=== PATIENT | male | born 1940 | race Caucasian/White ===

== ENCOUNTER 2022-02-28 17:24 | Inpatient (IN) ==
[2022-02-28] MEDS ORDERED: NS 0.9% 1000 ml BAG 1,000 ML IV ONE (17:27)
[2022-02-28 18:10] LABS: ABS Basophils 0.1 10^3/ul (0-0.2); ABS Eosinophils 0.3 10^3/ul (0-0.6); ABS Lymphocytes 1.6 10^3/ul (1.0-4.8); ABS Monocytes 0.5 10^3/ul (0-0.8); ABS Neutrophils 5.2 10^3/ul (1.5-7.7); Eosinophil % 3.3 %; Hematocrit 46 % (42-52); Hemoglobin 15.3 g/dL (14.0-18.0); Lymphocyte % 21.4 %; Mean Corpuscular HGB Conc 33 g/dL (31-36); Mean Corpuscular Hemoglobin 28 pg (27-31); Mean Corpuscular Volume 85 fL (80-94); Mean Platelet Volume 6.8 fL (7.4-10.4); Nucleated Red Blood Cells % 0.2; Platelet Count 274 10^3/uL (150-450); Red Blood Count 5.45 10^6 /uL (4.18-5.48); Red Cell Distribution Width 15 % (10-15); White Blood Count 7.6 10^3/uL (3.5-10.8)
[2022-02-28 18:20] LABS: Activated Partial Thrombo Time 30.6 seconds (26.0-38.0); INR 0.96 (0.86-1.15)
[2022-02-28 19:10] LABS: Albumin 3.3 g/dL (3.2-5.2); Albumin/Globulin Ratio 1.2 (1-3); Calcium 8.9 mg/dL (8.6-10.3); Globulin 2.7 g/dL (2-4); HDL Cholesterol 42.6 mg/dL; Potassium 5.1 mmol/L (3.5-5.0); Total Bilirubin 0.4 mg/dL (0.2-1.0); eGFR CKD-EPI 21.2 (>60)
[2022-02-28 20:02] LABS: High Sensitivity Troponin 1 Hr 23 pg/mL (<20)
[2022-02-28] MEDS ORDERED: Labetalol IV 5 MG/ML 20 ml VIAL IV PUSH ONE (20:25)
[2022-02-28 20:32] LABS: Magnesium 2.2 mg/dL (1.9-2.7)
[2022-02-28] MEDS ORDERED: Albuterol 2.5mg/3 ml (0.083%) NEB.SOLN INH PRN (22:01)
[2022-02-28] MEDS ORDERED: Dextrose 50% Syringe 50 ml 25 GM/50 ML SYRINGE IV PUSH PRN (22:06)
[2022-02-28 22:24] LABS: TSH Ultra Thyroid Stim Horm 2.48 mcIU/mL (0.34-5.60)
[2022-02-28] MEDS ORDERED: Insulin GLARGINE 100 un/ml 10 ml VIAL SUBCUT SCH (23:00)
[2022-02-28] MEDS ORDERED: Budesonide/Formote 160/4.5(NF) MDI INH SCH (23:00)
[2022-03-01] MEDS: Insulin GLARGINE 100 un/ml 10 ml VIAL SUBCUT SCH ×2 (00:55→20:55)
[2022-03-01 06:04] LABS: ABS Basophils 0.1 10^3/ul (0-0.2); ABS Eosinophils 0.4 10^3/ul (0-0.6); ABS Lymphocytes 2.2 10^3/ul (1.0-4.8); ABS Monocytes 0.6 10^3/ul (0-0.8); ABS Neutrophils 5.3 10^3/ul (1.5-7.7); Eosinophil % 4.5 %; Hematocrit 43 % (42-52); Hemoglobin 14.2 g/dL (14.0-18.0); Lymphocyte % 25.6 %; Mean Corpuscular HGB Conc 33 g/dL (31-36); Mean Corpuscular Hemoglobin 28 pg (27-31); Mean Corpuscular Volume 86 fL (80-94); Mean Platelet Volume 6.3 fL (7.4-10.4); Platelet Count 289 10^3/uL (150-450); Red Blood Count 5.04 10^6 /uL (4.18-5.48); Red Cell Distribution Width 15 % (10-15); White Blood Count 8.5 10^3/uL (3.5-10.8)
[2022-03-01] MEDS: Albuterol HFA INHALER 8 gm MDI INH PRN (06:22)
[2022-03-01 06:47] LABS: Calcium 8.6 mg/dL (8.6-10.3); eGFR CKD-EPI 20.5 (>60)
[2022-03-01 06:49] LABS: Potassium 5.2 mmol/L (3.5-5.0)
[2022-03-01] MEDS ORDERED: Mometasone/Formoter 100/5 MDI INH SCH (07:00)
[2022-03-01] MEDS: Aspirin EC 81 mg TAB.EC (enteric coated) PO SCH (11:24)
[2022-03-01] MEDS: Mometasone/Formoter 100/5 MDI INH SCH (21:06)
[2022-03-02] MEDS: Albuterol HFA INHALER 8 gm MDI INH PRN (05:45)
[2022-03-02 06:02] LABS: ABS Basophils 0.1 10^3/ul (0-0.2); ABS Eosinophils 0.4 10^3/ul (0-0.6); ABS Lymphocytes 2.5 10^3/ul (1.0-4.8); ABS Monocytes 0.6 10^3/ul (0-0.8); ABS Neutrophils 5.3 10^3/ul (1.5-7.7); Eosinophil % 4.2 %; Hematocrit 44 % (42-52); Hemoglobin 14.3 g/dL (14.0-18.0); Lymphocyte % 28.6 %; Mean Corpuscular HGB Conc 33 g/dL (31-36); Mean Corpuscular Hemoglobin 28 pg (27-31); Mean Corpuscular Volume 86 fL (80-94); Mean Platelet Volume 6.7 fL (7.4-10.4); Platelet Count 269 10^3/uL (150-450); Red Blood Count 5.06 10^6 /uL (4.18-5.48); Red Cell Distribution Width 16 % (10-15); White Blood Count 8.9 10^3/uL (3.5-10.8)
[2022-03-02 06:20] LABS: Calcium 8.5 mg/dL (8.6-10.3); Potassium 4.7 mmol/L (3.5-5.0)
[2022-03-02] MEDS ORDERED: Perflutren Lipid Microsphere 3 ML VIAL ONE (07:01)
[2022-03-02] MEDS: Mometasone/Formoter 100/5 MDI INH SCH ×2 (07:10→19:24)
[2022-03-02] MEDS: Aspirin EC 81 mg TAB.EC (enteric coated) PO SCH (08:20)
[2022-03-02] MEDS: Enoxaparin 30 MG/0.3 ML SYR SUBCUT SCH (10:02)
[2022-03-02] MEDS: Insulin GLARGINE 100 un/ml 10 ml VIAL SUBCUT SCH (20:46)
[2022-03-03] MEDS: Mometasone/Formoter 100/5 MDI INH SCH (07:01)
[2022-03-03 07:04] LABS: ABS Basophils 0.1 10^3/ul (0-0.2); ABS Eosinophils 0.4 10^3/ul (0-0.6); ABS Lymphocytes 2.4 10^3/ul (1.0-4.8); ABS Monocytes 0.5 10^3/ul (0-0.8); ABS Neutrophils 5.3 10^3/ul (1.5-7.7); Eosinophil % 4.9 %; Hematocrit 45 % (42-52); Hemoglobin 14.8 g/dL (14.0-18.0); Lymphocyte % 27.8 %; Mean Corpuscular HGB Conc 33 g/dL (31-36); Mean Corpuscular Hemoglobin 29 pg (27-31); Mean Corpuscular Volume 87 fL (80-94); Mean Platelet Volume 6.6 fL (7.4-10.4); Platelet Count 321 10^3/uL (150-450); Red Blood Count 5.17 10^6 /uL (4.18-5.48); Red Cell Distribution Width 15 % (10-15); White Blood Count 8.7 10^3/uL (3.5-10.8)
[2022-03-03 07:14] LABS: Calcium 8.6 mg/dL (8.6-10.3); Potassium 4.7 mmol/L (3.5-5.0); eGFR CKD-EPI 22.7 (>60)
[2022-03-03] MEDS: Enoxaparin 30 MG/0.3 ML SYR SUBCUT SCH (07:37)
[2022-03-03] MEDS: Aspirin EC 81 mg TAB.EC (enteric coated) PO SCH (07:37)
[2022-03-03 11:24] VITALS: BP 128/64
== END 2022-03-03 17:40 | disposition home or self-care (01) | DRG 45 ==
LOC: EDHOLD 17:24 → ED 17:24 → SUATTDRO 21:39 → MEDTELE 03-01 08:52 → SUATTDRO 03-01 16:53
PROVIDERS: ADMIT Internal Medicine; ATTEND Internal Medicine